=== PATIENT | male | born 1955 | race African-American/Black ===

== ENCOUNTER 2018-07-21 18:06 | Emergency (ER) | payer MEDICAID ==
[~2018-07-21] VITALS: Ht 177.8 cm; Wt 111.1 kg
[2018-07-21 18:06] VITALS: BP 225/128
[~2018-07-21 18:06] MED LIST: AMLO5TAB PO; CLON0.1T42 PO; HYDR-1807 PO; [UNRECOGNIZED DRUG - CODE] PO
--- NOTE | 2018-07-21 18:20 | NUR ---
PT AMBULATED TO BED 9 AT THIS TIME
[2018-07-21] MEDS ORDERED: hydrALAZINE 20 MG/ML VIAL IVP ONE (18:25)
[2018-07-21] MEDS ORDERED: ENALAPRILAT 2.5 MG/2 ML VIAL IVP ONE (18:25)
--- NOTE | 2018-07-21 18:27 | NUR ---
PT BIB SELF FOR MEDICATION REFIL. PT STATES THAT HE IS OUT OF BP MEDICINE AND THAT IS ALL HE NEED. PT BP AT THIS TIME IS 142/119, PT REFUSED IV OR LABS DRAWN. PT DENEIS PAIN, N/V/D, BLURRED VISION, DIZZYNESS, CP, OR SOB. ER MD TO SEE PT. MEDHX:HTN, PSYCHOSIS RX:CLONIDINE, HYDROCHLOROTHIAZIDE
[2018-07-21 18:48] VITALS: BP 142/119
--- NOTE | 2018-07-21 18:50 | NUR ---
Patient discharged with v/s stable. Written and verbal after care instructions given and explained. Patient alert, oriented and verbalized understanding of instructions. Ambulatory with steady gait. All questions addressed prior to discharge. ID band removed. Patient advised to follow up with PMD. Rx of HYDROCHLOROTHIAZIDE AND CLONIDINE given. Patient educated on indication of medication including possible reaction and side effects. Opportunity to ask questions provided and answered.
== END 2018-07-21 18:50 | disposition home or self-care (01) ==
LOC: MED 18:06
DX: I10 Essential (primary) hypertension (principal); J45.909 Unspecified asthma, uncomplicated; Z79.899 Other long term (current) drug therapy
CPT/HCPCS: 99283

== ENCOUNTER 2019-02-21 08:13 | Emergency (ER) | payer MEDICAID ==
[~2019-02-21] VITALS: Ht 177.8 cm; Wt 108.9 kg
--- NOTE | 2019-02-21 08:18 | NUR ---
PATIENT AMBULATED TO BED 4 AT THIS TIME.
[2019-02-21 08:20] VITALS: BP 179/111
[2019-02-21] MEDS ORDERED: ORE25 PO (08:22)
--- NOTE | 2019-02-21 08:25 | NUR ---
63/M presents to ED with complaints of cough x1 month. Pt describes cough as productive with yellow phlegm. Pt states he has tried OTC cough medications that temporarily relieves cough but then returns once medication is stopped. No signs of respiratory distress noted. Hx HTN. AOX4, clear speech.
[2019-02-21 09:49] VITALS: BP 170/108
--- NOTE | 2019-02-21 09:49 | NUR ---
Patient discharged with v/s stable. Written and verbal after care instructions given and explained. Patient alert, oriented and verbalized understanding of instructions. Ambulatory with steady gait. All questions addressed prior to discharge. ID band removed. Patient advised to follow up with PMD. Rx of AeroChamber, Albuterol, Prednisone, and Claritin given. Patient educated on indication of medication including possible reaction and side effects. Opportunity to ask questions provided and answered.
== END 2019-02-21 09:49 | disposition home or self-care (01) ==
LOC: MED 08:13
DX: J45.909 Unspecified asthma, uncomplicated (principal); I10 Essential (primary) hypertension; Z98.890 Other specified postprocedural states; Z79.899 Other long term (current) drug therapy
CPT/HCPCS: 71045; 99283; Q0092

== ENCOUNTER 2019-05-12 09:26 | Emergency (ER) | payer MEDICAID ==
[~2019-05-12] VITALS: Ht 177.8 cm; Wt 112.5 kg
[~2019-05-12 09:26] MED LIST changes: -AMLO5TAB PO; -HYDR-1807 PO; +ORE25 PO; -[UNRECOGNIZED DRUG - CODE] PO
--- NOTE | 2019-05-12 09:40 | NUR ---
PT ambulated to bed 06, RN evaluating PT at bedside.
[2019-05-12 09:51] VITALS: BP 215/97
--- NOTE | 2019-05-12 09:56 | NUR ---
PATIENT PRESENTS TO ED WITH C/O LIGHTHEADEDNESS X 4 DAYS, DENIES RECENT INJURY OR TRAUMA, FULL CLEAR SPEECH, AMBULATORY WITH STEADY GAIT, NO FACIAL ASYMMETRY, EQUAL BUE CARPENTER ROUGH .PATIENT STATES PAIN OF 8/10 AT THIS TIME; VSS; PATIENT POSITIONED FOR COMFORT; HOB ELEVATED; BEDRAILS UP X2; BED DOWN. ER MD MADE AWARE OF PT STATUS.
--- NOTE | 2019-05-12 10:15 | NUR ---
Patient being evaluated by DR. OHARA at bedside.
--- NOTE | 2019-05-12 10:30 | NUR ---
CT IS TAKEN TO CT BY CIGAR BINDER VIA WHEELCHAIR
[2019-05-12 11:55] VITALS: BP 203/115
--- NOTE | 2019-05-12 11:55 | NUR ---
Patient discharged with v/s stable. Written and verbal after care instructions given and explained. Patient alert, oriented and verbalized understanding of instructions. Ambulatory with steady gait. All questions addressed prior to discharge. ID band removed. Patient advised to follow up with PMD. Rx of CLONIDINE/ HCTZ given. Patient educated on indication of medication including possible reaction and side effects. Opportunity to ask questions provided and answered.
== END 2019-05-12 11:55 | disposition home or self-care (01) ==
LOC: MED 09:26
DX: R55 Syncope and collapse (principal); I10 Essential (primary) hypertension; J45.909 Unspecified asthma, uncomplicated; E11.9 Type 2 diabetes mellitus without complications; Z98.890 Other specified postprocedural states; Z79.899 Other long term (current) drug therapy
CPT/HCPCS: 70450; 93005; 99284

== ENCOUNTER 2023-04-19 02:50 | Emergency (ER) | payer OTHER, MEDICAID ==
[~2023-04-19] VITALS: Ht 177.8 cm; Wt 108.0 kg
[~2023-04-19 02:50] MED LIST changes: +CLON0.1T16 PO; -CLON0.1T42 PO; +HYDR-4004 PO; -ORE25 PO
[2023-04-19 03:11] VITALS: BP 189/90; PULSE 62; RESP 16; TEMP 99.6; O2SAT 98
[2023-04-19] MEDS ORDERED: AMLO10TA PO (04:51)
[2023-04-19 05:01] VITALS: BP 158/91; PULSE 62; RESP 16; TEMP 99.6; O2SAT 98
== END 2023-04-19 05:01 | disposition home or self-care (01) ==
LOC: MED 02:50
DX: I10 Essential (primary) hypertension (principal); Z76.0 Encounter for issue of repeat prescription; J45.909 Unspecified asthma, uncomplicated; E11.9 Type 2 diabetes mellitus without complications; Z79.899 Other long term (current) drug therapy
CPT/HCPCS: 93005; 99283